=== PATIENT | male | born 1930 | race Caucasian/White ===

== ENCOUNTER → 2017-08-19 | Outpatient (CLI) | payer OTHER ==
[~2017-08-19] MED LIST: ASPIRIN81 M2 PO; COZAAR 50 MG TA50 M1 PO; FISH OIL 1,0001 EAC5 PO; SIMVASTATIN40 MG PO; TAMSULOSIN HCL0.4 M1 PO; TOPROL XL25 MG PO
== END ==
LOC: RAD 08:41
DX: J92.9 Pleural plaque without asbestos (principal); M19.011 Primary osteoarthritis, right shoulder; M19.012 Primary osteoarthritis, left shoulder

== ENCOUNTER 2020-07-14 12:00 | Inpatient (IN) | payer OTHER ==
[~2020-07-14] VITALS: Ht 175.3 cm; Wt 88.5 kg
[2020-07-14 12:13] VITALS: BP 100/51
[2020-07-14 12:46] LABS: ABSOLUTE NEUTROPHILS 11.2 thou/uL (1.4-8.2); BASOPHILS 0.2 % (0.0-2.0); HEMOGLOBIN 13.6 gm/dL (14.0-18.0); MCH 31.2 pg (26.0-34.0); MCHC 33.2 g/dL (28.0-37.0); MCV 93.8 fL (80.0-100.0); MONOCYTES 7.3 % (1.0-8.0); PLATELET COUNT 181 thou/uL (150-400); POLYS 86.5 % (36.0-66.0); RBC 4.37 mil/uL (4.50-6.00); RDW 12.2 % (10.5-14.5); WBC 12.9 thou/uL (4.0-11.0)
[2020-07-14 12:53] LABS: CALCIUM 8.6 mg/dL (8.5-10.1); CREATININE 1.3 mg/dL (0.7-1.3); POTASSIUM 4.1 mmol/L (3.5-5.1)
[2020-07-14 12:59] LABS: ALBUMIN 2.9 g/dL (3.4-5.0); TOTAL BILIRUBIN 0.6 mg/dL (0.2-1.0); TOTAL PROTEIN 6.8 g/dL (6.4-8.2)
[2020-07-14 16:17] VITALS: BP 129/52
[2020-07-14 16:46] VITALS: BP 132/59
--- NOTE | 2020-07-14 18:06 | NUR ---
Pt arrived on cart from ER transported by [facility] with 2L NC. Pt ambulated from cart to bed. RN admitted pt with no issues, will continue to monitor. 1804: Pt's son, Yusef called RN, update provided. RN explained pt is resting comfortably on 2L, A+OX4. All questions addressed, no furter concerns at this time.
[2020-07-14] MEDS ORDERED: NORVASC 2.5 MG2.5 M1 PO ×2 (19:16→19:18)
[2020-07-14 20:21] VITALS: BP 154/67
--- NOTE | 2020-07-15 01:40 | NUR ---
ASSESSED AT START OF SHIFT. PT A&OX4. DENIES PAIN. ON 2L OF O2 UP WITH SBA TO THE BATHROOM. IV INTACT WITH FLUIDS INFUSING. URINAL AT BEDSIDE. BSG CHECKED NO COVERAGE. FALL PREC IN PLACE AND CALL LIGHT AT REACH
[2020-07-15 03:42] VITALS: BP 169/70
[2020-07-15 05:59] LABS: HEMATOCRIT 38.3 % (42.0-52.0); HEMOGLOBIN 12.7 gm/dL (14.0-18.0); MCH 31.4 pg (26.0-34.0); MCV 95.1 fL (80.0-100.0); RBC 4.03 mil/uL (4.50-6.00); RDW 12.4 % (10.5-14.5); WBC 9.1 thou/uL (4.0-11.0)
[2020-07-15 06:21] LABS: CREATININE 1.1 mg/dL (0.7-1.3); POTASSIUM 3.8 mmol/L (3.5-5.1)
[2020-07-15 07:23] VITALS: BP 164/78
--- NOTE | 2020-07-15 08:30 | NUR ---
Assess due to nutrition screening risk identified at admit. COVID+, respiratory failure. Advanced age 89. Diminished appetite past week, mild wt change about 5 lb from reported usual. On COVID vitamin protocol. Add Ensure Enlive 1x day and follow intake trends. BMI 28.9. Low nutrition risk at this time
--- NOTE | 2020-07-15 09:13 | HC ---
[facility] [place] [address] CONSULTATION Name: TYREE MARTEL Room #: 354-P ADM IN M.R.#: [id number] Admission: 07/14/20 Attend Phys: Stephen Jacques MD Discharge: Date of : 30 Report #: [id number] THIS REPORT FOR: cc: Amauri Wright MD, Rene P. MD Barry, Joseph W. MD ~ DATE OF SERVICE: 07/14/2020 INFECTIOUS DISEASE CONSULTATION ATTENDING PHYSICIAN: Dr. Stephen Jacques REASON FOR EVALUATION: COVID-19 infection, complicated by pneumonitis and respiratory failure. HISTORY OF SUBJECTIVE: Chart reviewed, patient examined. 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 This was about 9 days ago. Within the last several days, he had been confirmed to have a positive COVID-19 testing. He generally had been feeling satisfactory only to worsen over the last 12-18 hours prior to his admission, increasing difficulty breathing, cough, which is nonproductive. It is not clear if he had significant fevers. He did admit to some feeling cold, diminished appetite. No GI gastrointestinal-related complaints, otherwise. Chest x-ray noted left mid and lower lobe infiltrate. He is afebrile to this point. He is not encephalopathic. He was empirically started on therapy with azithromycin and ceftriaxone as well as dexamethasone. ALLERGIES: None known. CURRENT MEDICATIONS: Include ceftriaxone, azithromycin, dexamethasone, acetaminophen, ondansetron. PAST MEDICAL HISTORY: He has known coronary artery disease, hypertension. SOCIAL HISTORY: Former smoker. FAMILY HISTORY: Noncontributory. REVIEW OF SYSTEMS: Otherwise, unremarkable. PHYSICAL EXAMINATION: GENERAL: He is pleasant, alert. He is in [id number] distress. He has frequent paroxysms of dry cough. He is generally lucid. [facility] [address] [place] [address] CONSULTATION Name: TYREE MARTEL Room #: 354-P [facility] IN [facility]#: [id number] Admission: 07/14/20 Attend Phys: Stephen Jacques MD Discharge: Date of : 30 Report #: [id number] VITAL SIGNS: Temperature 98.6, pulse 76, respirations 16, blood pressure 129/52. SKIN: Warm, dry, no rashes. HEENT: Normocephalic. Extraocular muscles intact. Does have nasal cannula in place, 2 liters. NECK: Supple. LUNGS: Few scattered coarse breath sounds. HEART: Regular. I do not appreciate a murmur. ABDOMEN: Soft, nontender, nondistended. EXTREMITIES: No cyanosis. GENITOURINARY AND RECTAL: Deferred. LABORATORY DATA: CBC: White count 12.9, H and H 13.6 and 41.0, platelets of 181. Electrolytes: Sodium 136, potassium 4.1, chloride 101, bicarbonate 25, anion gap of 10, BUN and creatinine 24 and 1.3, albumin 2.9, total protein of 6.8. Chest x-ray as described above, mild left lung patchy infiltrate, left basilar infiltrate. ASSESSMENT: COVID-19 infection, complicated by pneumonitis, respiratory failure. We will add remdesivir to his regimen as well as vitamin. He does appear to be at risk for further deterioration, increased oxygen demands given his age and overall medical disease burden and see how he does clinically with oxygen support. <ELECTRONICALLY SIGNED> By: Ken Bradford MD 07/15/20 0913 [id number] Ken Bradford MD /nt
--- NOTE | 2020-07-15 13:58 | NUR ---
assessment: CM REVIEWED CHART AND ATTEMPTED TO CALL PT BUT NO ANSWER. PT IS COVID POSITIVE AND IS ENHANCED ISOLATION. CM REACHED OUT TO PATIENTS SON NESTOR. 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 HE REPORTS HE LIVES IN A HOUSE ALONE. IF PATIENT ENTERS THE HOME THROUGH THE GARAGE THERE IS A RAMP WITH NO STEPS TO ENTER OR ONCE IN THE HOME. PT IS INDEPENDENT WITH ADLS. PT IS CURRENTLY ON 2L OXYGEN BUT DOES NOT WEAR IT AT HOME. PT ALSO CURRENTLY HAS A LOW GRADE TEMPERATURE. PT HAS NO HX OF HH OR SNF. ID IS CONSULTED TO SEE PATIENT. NO PLANS ANTICIPATED FOR WEEKEND DISCHARGE. CM WILL CONTINUE TO FOLLOW TO ASSIST NEEDED.
--- NOTE | 2020-07-15 15:36 | NUR ---
PT A&OX4, VSS, DENIES PAIN. C/O NAUSEA, ZOFRAN GIVEN. NON PRODUCTIVE COUGH. PT SBA TO BATHROOM. PT 2L O2 NC. ASSESSMENT COMPLETE, MEDS GIVEN ORDERED. NO SIGNS OF DISTRESS, WILL CONTINUE TO MONITOR.
[2020-07-15 16:02] VITALS: BP 125/82
[2020-07-15 19:55] VITALS: BP 149/66
--- NOTE | 2020-07-15 23:33 | NUR ---
PT ALERT AND ORIENTED X4. VSS. 96% ON 2LNC. UNLABORED PRESENTLY. IV F'S INFUSING WITHOUT DIFFICULTY. WILL CONTINUE TO MONITOR PT FOR CHANGES.
[2020-07-16 03:44] VITALS: BP 166/92
[2020-07-16 04:38] LABS: HEMATOCRIT 40.3 % (42.0-52.0); HEMOGLOBIN 13.2 gm/dL (14.0-18.0); MCH 31.4 pg (26.0-34.0); MCHC 32.9 g/dL (28.0-37.0); MCV 95.5 fL (80.0-100.0); RBC 4.22 mil/uL (4.50-6.00); RDW 12.8 % (10.5-14.5); WBC 10.4 thou/uL (4.0-11.0)
[2020-07-16 04:54] LABS: ALBUMIN 2.4 g/dL (3.4-5.0); CALCIUM 8.4 mg/dL (8.5-10.1); CREATININE 1.1 mg/dL (0.7-1.3); DIRECT BILIRUBIN 0.1 mg/dL (<0.1-0.2); PHOSPHORUS 2.7 mg/dL (2.5-4.9); TOTAL BILIRUBIN 0.4 mg/dL (0.2-1.0); TOTAL PROTEIN 6.3 g/dL (6.4-8.2)
--- NOTE | 2020-07-16 07:19 | NUR ---
PT PROGRESSING TOWARDS D/C GOALS. VSS. UNLABORED ON 2LNC. NO C/O PAIN OR SOA. NO S/S DISTRESS.
[2020-07-16 07:41] VITALS: BP 165/74
[2020-07-16 15:47] VITALS: BP 161/71
[2020-07-16 19:42] VITALS: BP 130/60
[2020-07-16 19:47] VITALS: BP 144/95
--- NOTE | 2020-07-17 00:55 | NUR ---
PT ALERT AND ORIENTED 4. VSS. UNLABORED ON 2LNC. SR 1'AVB BBB ON MONITOR. NO C/O PAIN. NO S/S DISTRESS. WILL CONTINUE TO MONITOR PT FOR CHANGES.
[2020-07-17 03:04] VITALS: BP 154/81
[2020-07-17 05:00] LABS: ALBUMIN 2.1 g/dL (3.4-5.0); CALCIUM 8.3 mg/dL (8.5-10.1); CREATININE 0.9 mg/dL (0.7-1.3); DIRECT BILIRUBIN 0.1 mg/dL (<0.1-0.2); PHOSPHORUS 2.6 mg/dL (2.5-4.9); POTASSIUM 4.1 mmol/L (3.5-5.1); TOTAL BILIRUBIN 0.3 mg/dL (0.2-1.0); TOTAL PROTEIN 5.5 g/dL (6.4-8.2)
[2020-07-17 07:29] VITALS: BP 146/69
--- NOTE | 2020-07-17 07:34 | NUR ---
PT PROGRESSING SLOWLY TOWARDS D/C GOALS. UNLABORED ON O2 2 LNC. NO C/O PAIN. NO S/S SOA. VSS.
[2020-07-17 15:54] VITALS: BP 151/66
[2020-07-17 19:39] VITALS: BP 154/76
--- NOTE | 2020-07-17 22:31 | NUR ---
PT IS ALERT AND ORIENTED X4 VSS. NO C/O PAIN OR SOA ON 2LNC. BED DOWN CALL LIGHT IN REACH. PT GETS UP AD LASHAWN TO BR INDEPENDENTLY. IV ABX INFUSING WITHOUT DIFFICULTY . WILL CONTINUE TO MONITOR FOR CHANGES.
[2020-07-18 03:25] VITALS: BP 137/58
--- NOTE | 2020-07-18 04:36 | NUR ---
PT PROGRESSING SLOWLY TOWARDS D/C GOALS. PT STILL ON 2LNC. FEW FAINT CRACKLES NOTED LEFT UPPER LOBE THIS AM UNLABORED. NO C/O SOA.
[2020-07-18 06:53] LABS: ALBUMIN 2.1 g/dL (3.4-5.0); ANION GAP 9 mmol/L (7-16); BUN 19 mg/dL (7-18); CALCIUM 8.2 mg/dL (8.5-10.1); CHLORIDE 105 mmol/L (98-107); CO2 26 mmol/L (21-32); CREATININE 0.9 mg/dL (0.7-1.3); DIRECT BILIRUBIN < 0.1 mg/dL (<0.1-0.2); GLUCOSE 109 mg/dL (74-106); PHOSPHORUS 2.8 mg/dL (2.5-4.9); POTASSIUM 4.3 mmol/L (3.5-5.1); SGOT 21 U/L (15-37); SGPT 36 U/L (30-65); SODIUM 140 mmol/L (136-145); TOTAL BILIRUBIN 0.3 mg/dL (0.2-1.0); TOTAL PROTEIN 5.6 g/dL (6.4-8.2)
[2020-07-18 07:53] VITALS: BP 152/76
[2020-07-18 15:04] VITALS: BP 139/56
--- NOTE | 2020-07-18 15:39 | NUR ---
MORIAH reviewed chart and spoke with nursing and attending physician. Pt remains in Enhanced Isolation due to COVID-19. Pt is afebrile and on 2L of O2. Pt is on IV abx and IV steroids. Course of Remdesivir to be finished today. PT/OT ordered to evaluate pt for discharge needs. Pt will need a rest/exercise oximetry to determine if pt needs home O2. Discharge is anticipated for tomorrow. MORIAH placed call to pt room. No answer. MORIAH spoke with pt's son, Yusef, to discuss discharge plan. Possible HH and/or Home O2. Pt's son verbalized understanding. SW confirmed pt's home address and phone number. Options provided for HH/DME companies. No preference voiced. MORIAH faxed HH referral to [facility] for review. Notified Kylee in intake of new referral. Pt's son states that family will be able to provid transportation home when discharged. MORIAH is following to assist as needed with discharge planning.
[2020-07-18 21:44] VITALS: BP 156/72
[2020-07-19 02:52] VITALS: BP 146/71
--- NOTE | 2020-07-19 07:18 | NUR ---
DENIES PAIN.LOOKING FORWARD OF GOING HOME SOON.MONITOR SHOWS SR.DENIES PAIN.POC CONTINUED.
[2020-07-19 07:42] VITALS: BP 177/77
--- NOTE | 2020-07-19 14:59 | NUR ---
MORIAH reviewed chart and spoke with nursing and attending physician. Pt remains in Enhanced Isolation due to COVID-19. PT is afebrile and on 2L of O2. Pt is on IV abx and IV steroids. [facility] has accepted pt on services. Rest/exercise oximetry complete. Pt requires 3L at rest and 6L with activity. Pt not ready to discharge today per attending. Will repeat rest/exercise oximetry tomorrow. MORIAH faxed face sheet and clinical info to [facility] for review to check insurance. MORIAH notified [facility] liaison of new referral. MORIAH spoke with intake at [facility] to provide update. Discharge home is anticipated for tomorrow. Pt's family notified. MORIAH is following to assist as needed with discharge planning.
[2020-07-19 16:14] VITALS: BP 139/71
[2020-07-19] MEDS ORDERED: CEFDINIR300 MG PO (16:16)
[2020-07-19] MEDS ORDERED: PREDNISONE 5 MG5 M1 PO (16:18)
[2020-07-19 19:44] VITALS: BP 146/64
[2020-07-19 21:54] LABS: sO2 99.4 % (92.0-98.0)
[2020-07-19 21:57] LABS: BE(vivo) -4.5 mmol/L (-2 to +3); HCO3 17.3 mmol/L (22.0-26.0); pH 7.476 (7.360-7.450)
--- NOTE | 2020-07-19 22:16 | NUR ---
PT RESTING IN BED. O2 PER NC 6L. NOT SOA WITH TALKING. PT REQUESTED SNACK AND PROVIDED. PT LUNGS DIMINISHED. PT REPORTED PLAN FOR DC HOME TOMORROW WITH O2.
[2020-07-20 03:31] VITALS: BP 138/77
[2020-07-20 07:38] VITALS: BP 158/77
[2020-07-20 11:05] VITALS: BP 169/74
[2020-07-20 11:30] LABS: BE(vivo) -1.2 mmol/L (-2 to +3); HCO3 21.9 mmol/L (22.0-26.0); PCO2 31.9 mmHg (35.0-45.0); PO2 62.4 mmHg (80.0-100.0); pH 7.454 (7.360-7.450); sO2 93.2 % (92.0-98.0)
[2020-07-20 15:13] VITALS: BP 169/78
--- NOTE | 2020-07-20 15:38 | NUR ---
SW reviewed chart and spoke with nursing and attending physician. Pt remains in Enhanced Isolation due to COVID-19. Pt is afebrile and requiring 6L of O2 at rest. Pt is not ready for discharge today. SW updated intake at [facility] and [facility]. Pt will need a new rest/exercise oximetry prior to discharge. SW is following to assist as needed with discharge planning.
[2020-07-20 19:55] VITALS: BP 164/73
[2020-07-21 03:16] VITALS: BP 164/82
--- NOTE | 2020-07-21 06:37 | NUR ---
PT STILL ON 6l VIA NC. WILL DESAT WITH MOVEMENT. PT STATES HE CAN NOT URINATE THIS AM. FURTHER INVESTIGATION, PT FLOMAX WAS NOT RESTARTED FOR LAST 7 DAYS. CALLED TEAROOM HOST/HOSTESS AND RECEIVED ORDERS FOR RESUME FLOMAX DAILY. PT UP AD LASHAWN.
[2020-07-21 07:44] VITALS: BP 159/66
--- NOTE | 2020-07-21 14:16 | NUR ---
Patient with increase oxygen need. Difficulty with urination. Rn reports no dc today. Updated [facility] home health.
[2020-07-21 15:06] VITALS: BP 151/60
[2020-07-21 20:30] VITALS: BP 150/60
[2020-07-22 04:11] VITALS: BP 126/48
[2020-07-22 07:49] VITALS: BP 129/64
--- NOTE | 2020-07-22 07:55 | NUR ---
Followup: continues treatment, COVID +. Eating 50-75% meals. No further significant wt changes. Offer Ensure Enlive 1x day. Low nutrition risk
--- NOTE | 2020-07-22 08:51 | 2DMMODE ---
[facility] [place] [address] 2 D/M-MODE ECHOCARDIOGRAM Name: TYREE MARTEL Room #: 354-P ADM IN M.R.#: [id number] Admission: 07/14/20 Attend Phys: Stephen Jacques MD Discharge: Date of : 30 Report #: [id number] THIS REPORT FOR: cc: Amauri Wright MD, Rene P. MD Lundgren, Craig H. MD [facility] ~ APPROVED REPORT Study performed: 07/22/2020 07:56:57 EXAM: Comprehensive 2D, Doppler, and color-flow Echocardiogram Patient Location: Bedside Room #: 354 Status: routine BSA: 2.04 HR: 72 bpm BP: 126/64 mmHg Rhythm: NSR Other Information Study Quality: Good Indications Congestive Heart Failure Dyspnea Covid 19 2D Dimensions IVSd: 12.27 (7-11mm) LVOT Diam: 24.95 (18-24mm) LVDd: 39.81 mm PWd: 11.96 (7-11mm) Ascending Ao: 34.36 (22-36mm) LVDs: 27.92 (25-40mm) Aortic Root: 38.17 mm IVC: 18.00 mm Tricuspid Valve TR Peak Kemal.: 2.19 m/s TR Peak Gr.: 19.13 mmHg PA Pressure: 24.00 mmHg Left Ventricle The left ventricle is normal size. There is normal LV segmental wall motion. Mild concentric left ventricular hypertrophy. The left ventricular systolic function is normal. The left ventricular ejection fraction is within the normal range. LVEF is 55-60%. Mild [facility] [address] [place] [address] 2 D/M-MODE ECHOCARDIOGRAM Name: TYREE MARTEL Room #: 354-P ADM IN M.R.#: [id number] Admission: 07/14/20 Attend Phys: Clyde Reyes Discharge: Date of : 30 Report #: [id number] diastolic dysfunction Right Ventricle The right ventricle is normal size. The right ventricular systolic function is normal. Atria Left atrium is at the upper limits of normal. Right atrium is at the upper limits of normal. Aortic Valve The aortic valve is trileaflet, mildly calcified No aortic regurgitation is present. There is no aortic valvular stenosis. Mitral Valve Mildly sclerotic anterior mitral leaflet Trace to mild mitral regurgitation. No evidence of mitral valve stenosis. Tricuspid Valve The tricuspid valve is normal in structure. There is trace tricuspid regurgitation. Estimated PAP 24 mmHg. There is no pulmonary hypertension. Pulmonic Valve The pulmonary valve is normal in structure. There is no pulmonic valvular regurgitation. Great Vessels The aortic root is normal in size. IVC is normal in size and collapses >50% with inspiration. Pericardium There is no pericardial effusion. <Conclusion> The left ventricular systolic function is normal. There is normal LV segmental wall motion. LVEF is 55-60%. Mild diastolic dysfunction The aortic valve is trileaflet, mildly calcified. No aortic regurgitation or stenosis Mildly sclerotic anterior mitral leaflet. Trace to mild mitral regurgitation. [facility] [address] [address] 2 D/M-MODE ECHOCARDIOGRAM Name: TAHMINATYREE Room #: 354-P ADM IN M.R.#: [id number] Admission: 07/14/20 Attend Phys: Clyde Reyes Discharge: Date of : 30 Report #: [id number] There is trace tricuspid regurgitation. Estimated PAP 24 mmHg. There is no pericardial effusion. <ELECTRONICALLY SIGNED> By: Vipul Pemberton MD, FACC 07/22/20 0851 0 Vipul Pemberton MD, FACC /INF
[2020-07-22 11:42] VITALS: BP 137/53
[2020-07-22 12:29] VITALS: BP 137/53
[2020-07-22 12:51] LABS: HEMATOCRIT 37.4 % (42.0-52.0); HEMOGLOBIN 12.5 gm/dL (14.0-18.0); MCH 31.7 pg (26.0-34.0); MCHC 33.4 g/dL (28.0-37.0); MCV 94.9 fL (80.0-100.0); RBC 3.94 mil/uL (4.50-6.00); RDW 12.6 % (10.5-14.5); WBC 9.1 thou/uL (4.0-11.0)
[2020-07-22 12:56] LABS: CALCIUM 9.1 mg/dL (8.5-10.1); CREATININE 1.2 mg/dL (0.7-1.3)
[2020-07-22] MEDS ORDERED: ACETAMINOPHEN325 M1 PO (13:19)
[2020-07-22] MEDS ORDERED: FLOMAX0.4 MG PO (13:19)
[2020-07-22] MEDS ORDERED: ACEROLA C500 MG PO (13:19)
[2020-07-22] MEDS ORDERED: VITAMIN D325 MC1 PO (13:19)
[2020-07-22] MEDS ORDERED: VITAMIN B-1100 M2 PO (13:19)
[2020-07-22] MEDS ORDERED: ZINC SULFATE 2220 MG PO (13:19)
[2020-07-22] MEDS ORDERED: ADULT TUSS100 MG/5 M PO (13:19)
[2020-07-22] MEDS ORDERED: IPRAT-ALBUT 0.5-3 ML INH (13:19)
--- NOTE | 2020-07-22 14:27 | NUR ---
DISCHARGE NOTE: MORIAH reviewed chart and spoke with nursing and attending physician. Pt remains in Enhanced Isolation due to COVID-19. Pt is medically stable for discharge home today with [facility] . Rest/exercise oximetry completed and pt does not qualify for home O2. Pt's O2 sats stayed above 90% at rest and with activity. MORIAH faxed finalized discharge orders/summary to and notified Kylee in intake of pt's discharge. MORIAH updated [facility] liaison of pt not needing home O2. MORIAH placed call to pt's room. No answer. MORIAH spoke with pt's son, Yusef, to provide update. 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 Yusef requests to speak with pt's nurse prior to pt's discharge. Contact info for HH placed in pt's discharge summary. No additional SW needs identified at this time, but is available to assist should needs arise.
[2020-07-22 15:16] VITALS: BP 137/53
--- NOTE | 2020-07-25 07:53 | EKG ---
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: : 1930 Requested By: Randall Simon Order Number: [id number] MD: Akin Garcia Measurements Intervals [place] Rate: 82 P: 10 CT: 187 QRS: 16 QRSD: 141 T: 28 QT: 379 QTc: 443 Interpretive Statements Sinus rhythm Probable left atrial enlargement Right bundle branch block Compared to ECG 08/18/2009 07:42:11 First degree AV block no longer present Electronically Signed On 07-15-2020 7:29:52 OIL HEATER OPERATOR by Akin Garcia [email or web address] <ELECTRONICALLY SIGNED> By: Akin Garcia MD, [facility] 07/15/20 0729 1222 1222 Akin Garcia MD, FACC /EPI
== END 2020-07-22 17:02 | disposition home health service (06) | DRG 871 ==
LOC: ER 12:00 → 3W 14:27 → EROBS 14:27 → 3W 16:18
PROVIDERS: Emergency Medicine; Internal Medicine; Specialist; ADMIT Hospitalist; ATTEND Hospitalist
PROC: XW033E5 Introduction of Remdesivir Anti-infective into Peripheral Vein, Percutaneous Approach, New Technology Group 5 (ICD-10-PCS; 2020-07-14)
PROC: 5A0935A Assistance with Respiratory Ventilation, Less than 24 Consecutive Hours, High Flow/Velocity Cannula (ICD-10-PCS; principal; 2020-07-22)
DX: A41.89 Other specified sepsis (principal); U07.1 COVID-19; J12.89 Other viral pneumonia; J96.01 Acute respiratory failure with hypoxia; N17.9 Acute kidney failure, unspecified; I10 Essential (primary) hypertension; E78.5 Hyperlipidemia, unspecified; I25.10 Atherosclerotic heart disease of native coronary artery without angina pectoris; D69.6 Thrombocytopenia, unspecified; R73.9 Hyperglycemia, unspecified; T38.0X5A Adverse effect of glucocorticoids and synthetic analogues, initial encounter; R33.9 Retention of urine, unspecified; Y92.89 Other specified places as the place of occurrence of the external cause; I25.2 Old myocardial infarction; Z87.891 Personal history of nicotine dependence; Z79.82 Long term (current) use of aspirin; Z79.899 Other long term (current) drug therapy
CPT/HCPCS: 10879

== ENCOUNTER → 2020-08-12 | Outpatient (CLI) | payer OTHER ==
[~2020-08-12] MED LIST changes: +ACEROLA C500 MG PO; +ACETAMINOPHEN325 M1 PO; +ADULT TUSS100 MG/5 M PO; +CEFDINIR300 MG PO; +FLOMAX0.4 MG PO; +IPRAT-ALBUT 0.5-3 ML INH; +NORVASC 2.5 MG2.5 M1 PO; +PREDNISONE 5 MG5 M1 PO; +VITAMIN B-1100 M2 PO; +VITAMIN D325 MC1 PO; +ZINC SULFATE 2220 MG PO
== END ==
LOC: RAD 12:46
PROVIDERS: ATTEND Family Medicine
DX: R91.8 Other nonspecific abnormal finding of lung field (principal); M47.814 Spondylosis without myelopathy or radiculopathy, thoracic region; U07.1 COVID-19; J12.89 Other viral pneumonia